=== PATIENT | female | born 1985 | race Caucasian/White ===

== ENCOUNTER → 2017-12-08 15:23 | Outpatient (CLI) | payer OTHER, MEDICAID, SELFPAY ==
[2017-12-15 10:21] LABS: HPV APTIMA, High Risk Negative (Negative)
== END ==
PROVIDERS: Visit Provider Obstetrics & Gynecology
DX: Z12.4 Encounter for screening for malignant neoplasm of cervix (principal)
CPT/HCPCS: 88175; G0145

== ENCOUNTER → 2019-01-08 17:39 | Outpatient (CLI) | payer OTHER, MEDICAID, SELFPAY ==
[2019-01-12 12:18] LABS: HPV APTIMA, High Risk Negative (Negative)
== END ==
PROVIDERS: Visit Provider Obstetrics & Gynecology
DX: Z12.4 Encounter for screening for malignant neoplasm of cervix (principal)
CPT/HCPCS: 87624; 88175; G0145

== ENCOUNTER → 2019-08-16 15:55 | Outpatient (CLI) | payer OTHER, MEDICAID, SELFPAY ==
[2019-08-16 20:27] LABS: Chlamydia Trachomatis by PCR Negative (Negative); Neisserai gonorrhoeae by PCR Negative (Negative); Probe Check PASS; Sample Adequacy Control PASS; Specimen Processing Control PASS
== END ==
PROVIDERS: Visit Provider Obstetrics & Gynecology
DX: Z11.3 Encounter for screening for infections with a predominantly sexual mode of transmission (principal)
CPT/HCPCS: 87491; 87591

== ENCOUNTER → 2020-02-01 | Outpatient (CLI) | payer OTHER, MEDICAID, SELFPAY ==
[2020-02-09 13:42] LABS: HPV APTIMA, High Risk Negative; HPV Reflexed? YES, CHARGE PATIENT
== END | disposition home or self-care (01) ==
LOC: LABSPEC 15:51
PROVIDERS: Visit Provider Obstetrics & Gynecology
DX: Z12.4 Encounter for screening for malignant neoplasm of cervix (principal); Z11.3 Encounter for screening for infections with a predominantly sexual mode of transmission
CPT/HCPCS: 87624; 88175; G0145

== ENCOUNTER 2021-11-05 15:38 | Outpatient (CLI) | payer OTHER, MEDICAID, SELFPAY ==
[2021-11-09 00:07] LABS: Chlamydia By Nucleic Acid AMP Negative (Negative)
[2021-11-09 13:26] LABS: Gonococcus By Nucleic Acid AMP Negative (Negative)
[2021-11-11 14:10] LABS: HPV APTIMA, High Risk Negative (Negative)
[2021-11-11 14:11] LABS: HPV Reflexed? YES, CHARGE PATIENT
== END 2021-11-05 23:59 | disposition home or self-care (01) ==
LOC: WOBLAB 15:38
PROVIDERS: Visit Provider Obstetrics & Gynecology
DX: Z12.4 Encounter for screening for malignant neoplasm of cervix (principal); Z11.3 Encounter for screening for infections with a predominantly sexual mode of transmission
CPT/HCPCS: 87491; 87591; 87624; 88175; G0145

== ENCOUNTER → 2022-08-06 | Outpatient (CLI) | payer OTHER, MEDICAID, SELFPAY ==
[2022-08-06 10:26] LABS: Absolute Lymphocyte Count 1.48 X10^3/uL (0.83-4.51); Absolute Neutrophil Count 4.1 X10^3/uL (2.0-7.7); Basophil# 0.03 X10^3/uL; Basophil% 0.5 % (0-1); Eosinophil# 0.09 X10^3/uL; Eosinophils% 1.4 % (0-5); Hematocrit 40.9 % (37-47); Lymphocyte # 1.48 X10^3/ul (0.83-4.51); Lymphocyte % 22.9 % (19-41); Mean Corp Hgb Conc 34.2 g/dL (32-36); Mean Corpuscular Hgb 32.7 pg (27.0-32.0); Mean Corpuscular Volume 95.6 fL (81-99); Mean Platelet Vol. 9.9 fl (6.2-12.0); Monocyte# 0.77 X10^3/uL; Monocyte% 11.9 % (0-10); NRBC Flagged by Analyzer 0 % (0-5); Neutrophil # 4.07 X10^3/uL (2.7-7.7); Neutrophil % 62.8 % (47-70); Platelet Count 358 K/mm3 (150-450); RBC Distribution Width SD 42.1 fl (35.1-43.9); Red Blood Count 4.28 M/mm3 (4.2-5.4); White Blood Count 6.5 K/mm3 (4.4-11.0)
[2022-08-06 10:58] LABS: Prolactin 14.5 ng/mL; T4 Free Direct 0.91 ng/dL (0.76-1.46); Thyroid Stim Hormone (TSH) 2.18 uIU/mL (0.358-3.74)
[2022-08-06 11:18] LABS: HIV - WCH Non-Reactive (Nonreactive); Hepatitis B Surface Antibody Non-Reactive; Syphilis Antibodies Non-reactive
[2022-08-09 19:06] LABS: HEPATITIS B SURFACE AG Negative (Negative); Hep C Antibodies <0.1 s/co ratio (0.0-0.9); Hepatitis A IgM Antibody Negative (Negative); Hepatitis B Core AB IgM Negative (Negative); Testosterone Free 8.1 pg/mL (0.0-4.2)
[2022-08-10 16:36] LABS: Hepatitis A AB, Total Negative (Negative)
== END | disposition home or self-care (01) ==
LOC: WOBLAB 09:22
PROVIDERS: Visit Provider Obstetrics & Gynecology
DX: Z11.3 Encounter for screening for infections with a predominantly sexual mode of transmission (principal); N93.9 Abnormal uterine and vaginal bleeding, unspecified
CPT/HCPCS: 36415; 80074; 84146; 84402; 84439; 84443; 85025; 86703; 86706; 86708; 86780

== ENCOUNTER → 2022-08-25 | Outpatient (CLI) | payer MEDICAID, SELFPAY | END | disposition home or self-care (01) | LOC: LABSPEC 14:40 | PROVIDERS: Visit Provider Obstetrics & Gynecology | DX: A63.0 Anogenital (venereal) warts (principal) | CPT/HCPCS: 87255 ==